=== PATIENT | female | born 1960 | race Caucasian/White ===

== ENCOUNTER 2016-09-03 17:55 | Emergency (ER) | payer MEDICAID ==
[~2016-09-03] VITALS: Ht 160 cm; Wt 63.6 kg
[~2016-09-03 17:55] MED LIST: ALPR-475 PO; DOCU-30 PO; LEVO750T26 PO; POLY17PO5 PO
[2016-09-03 17:57] VITALS: BP 126/71
== END 2016-09-03 19:25 | disposition home or self-care (01) ==
LOC: ED 19:19
DX: S92.354A Nondisplaced fracture of fifth metatarsal bone, right foot, initial encounter for closed fracture (principal); G35 Multiple sclerosis; W19.XXXA Unspecified fall, initial encounter; Y93.89 Activity, other specified; Y99.8 Other external cause status; Y92.009 Unspecified place in unspecified non-institutional (private) residence as the place of occurrence of the external cause
CPT/HCPCS: 99284

== ENCOUNTER 2017-04-02 14:25 | Emergency (ER) | payer MEDICAID ==
[~2017-04-02] VITALS: Ht 160 cm; Wt 63.6 kg
[~2017-04-02 14:25] MED LIST changes: +DOCU-131 PO; -DOCU-30 PO; +HYDR-3240 PO; +NALT50TA PO; +ONDA4TAB7 PO; +TIZA4TAB9 PO; +TRAM50TA2 PO
[2017-04-02 14:35] VITALS: BP 135/92
== END 2017-04-02 16:48 | disposition home or self-care (01) ==
LOC: ED 15:32
DX: S00.83XA Contusion of other part of head, initial encounter (principal); W19.XXXA Unspecified fall, initial encounter; Y93.89 Activity, other specified; Y92.009 Unspecified place in unspecified non-institutional (private) residence as the place of occurrence of the external cause; Y99.8 Other external cause status
CPT/HCPCS: 70450; 70486; 99284